=== PATIENT | male | born 1985 | race Caucasian/White ===

== ENCOUNTER 2024-05-24 11:28 | Outpatient (CLI) | payer OTHER, SELFPAY ==
--- NOTE | ~2024-05-24 | XR_ITS ---
EXAMINATION: XR chest 2V Exam Date/Time: 05/24/2024 11:45 SALES HUNTER HISTORY: Ex-tobacco user Comparison: None. RESULT: Lines, tubes, and devices: None. Lungs and pleura: Calcified right midlung granuloma, otherwise clear. Costophrenic angles partially excluded from the [id number]. Cardiomediastinal silhouette: Stable. Other: No acute osseous or upper abdominal finding. IMPRESSION: No acute cardiopulmonary process. Reviewed, dictated and finalized at location [facility]
== END 2024-05-24 11:29 | disposition home or self-care (01) ==
LOC: ANHIMG 11:38
PROVIDERS: PCP Emergency Medicine; Visit Provider Emergency Medicine
DX: Z87.891 Personal history of nicotine dependence (principal)
CPT/HCPCS: 71046

== ENCOUNTER 2024-07-19 07:17 | Outpatient (CLI) | payer OTHER, SELFPAY ==
--- NOTE | ~2024-07-19 | US_ITS ---
US right upper quadrant DATE: 07/19/2024 07:42 INDICATION: Elevated liver enzymes TECHNIQUE: Real-time imaging and Doppler analysis COMPARISON: None FINDINGS: The pancreas appears normal. No pancreatic duct dilatation. No hepatic space-occupying mass lesion is evident. Normal hepatopedal portal venous flow direction. No gallstones or gallbladder wall thickening or abnormal pericholecystic fluid collection. Negative s onographic Alexandre sign. The common bile duct measures 3.7 mm, normal. IMPRESSION: No significant abnormality Reviewed, dictated and finalized at [facility]. Reviewed, dictated and finalized at location [facility]. KITTER IMPRESSION: No significant abnormality
== END 2024-07-19 07:18 | disposition home or self-care (01) ==
LOC: MICIMG 07:18
PROVIDERS: PCP Emergency Medicine; Visit Provider Emergency Medicine
DX: R74.01 Elevation of levels of liver transaminase levels (principal)
CPT/HCPCS: 76705